=== PATIENT | female | born 1960 | race Caucasian/White ===

== ENCOUNTER 2017-10-21 22:29 | Emergency (ER) | payer OTHER, BC ==
[2017-10-21] MEDS: PERCOCET 5MG/325MG TAB PO (23:08)
== END 2017-10-21 23:57 | disposition home or self-care (01) ==
LOC: M ED 22:29
DX: S82.64XA Nondisplaced fracture of lateral malleolus of right fibula, initial encounter for closed fracture (principal); X50.0XXA Overexertion from strenuous movement or load, initial encounter; Y92.59 Other trade areas as the place of occurrence of the external cause; Y99.0 Civilian activity done for income or pay; G43.909 Migraine, unspecified, not intractable, without status migrainosus; R00.2 Palpitations; K21.9 Gastro-esophageal reflux disease without esophagitis; K44.9 Diaphragmatic hernia without obstruction or gangrene; F41.9 Anxiety disorder, unspecified; Z79.899 Other long term (current) drug therapy; Z87.891 Personal history of nicotine dependence
CPT/HCPCS: 73610

== ENCOUNTER → 2018-11-24 | Outpatient (REF) | payer OTHER ==
[~2018-11-24] MED LIST: ATOR1TAB21 PO; BUSP5TA PO; COUM1TAB18 PO; FISHOIL OR; MULTLIQ7 PO; NADO40TA PO; OMEPPOW18 OR; OXYC1TAB23 PO; SENN8.6T7 PO; TYLE325T5 PO; vitamin D OR
== END ==
LOC: M WUC 10:34
PROVIDERS: ATTEND Physician Assistant
DX: N39.0 Urinary tract infection, site not specified (principal)

== ENCOUNTER → 2019-03-12 | Outpatient (CLI) | payer BC ==
--- NOTE | 2019-03-12 12:29 | REP ---
Clinical: Nontraumatic right wrist pain Technique: AP, lateral, bilateral oblique views. Findings: The carpal bones, surrounding osseous structures, soft tissues, and joint spaces are normal. There is no evidence for acute fracture or dislocation. No subcutaneous emphysema or radiodense foreign body. Impression: Normal age-appropriate right wrist series. No acute fracture or dislocation Electronically Signed by Harvey Stephens MD 03/12/2019 12:20 P
== END ==
LOC: M WUC 12:09
PROVIDERS: ATTEND Nurse Practitioner Family
DX: M25.531 Pain in right wrist (principal)

== ENCOUNTER → 2019-08-01 | Outpatient (CLI) | payer BC ==
--- NOTE | 2019-08-01 13:07 | REP ---
Left lower extremity Duplex Doppler venous ultrasound: Real time compression and duplex Doppler interrogation of the left lower extremity deep venous system is performed. The left common femoral, superficial femoral and popliteal veins are fully compressible with transducer pressure and demonstrate normal spontaneous and phasic flow, without evidence of deep venous thrombosis. Impression: No evidence of deep venous thrombosis of the left lower extremity femoral popliteal venous system. Electronically Signed by Micah Fierro MD 08/01/2019 12:58 P
== END ==
LOC: M RAD 12:28
PROVIDERS: ATTEND Orthopaedic Surgery
DX: M79.662 Pain in left lower leg (principal)

== ENCOUNTER → 2019-10-06 | Outpatient (REF) | payer BC ==
[~2019-10-06] MED LIST changes: +VITA500079 PO
[2019-10-06 12:35] LABS: INR 1.08; PROTHROMBIN TIME 13.7 SECONDS (11.8-14.0)
== END ==
LOC: M LAB REF 12:21
PROVIDERS: ATTEND Internal Medicine
DX: Z01.818 Encounter for other preprocedural examination (principal)

== ENCOUNTER 2019-10-22 10:09 | Inpatient (IN) | payer BC ==
--- NOTE | 2019-10-18 08:48 | HPE ---
DATE OF ANTICIPATED ADMISSION: 10/22/2019 ATTENDING PHYSICIAN: Dr. Kevin Malagon CHIEF COMPLAINT: Left knee pain and stiffness. HISTORY: This is a pleasant 58-year-old female patient with progressively worsening left knee pain and stiffness who has failed to improve with conservative management. She has opted for surgical intervention for her continued symptoms. She has been consented for left total knee arthroplasty with Dr. Malagon. ALLERGIES: NO KNOWN DRUG ALLERGIES. CURRENT MEDICATIONS: - atorvastatin 20 mg - buspirone 5 mg - fexofenadine 180 mg - fluticasone - montelukast - nadolol 40 mg PAST MEDICAL HISTORY: 1. History of chronic microscopic hematuria. 2. Premature ventricular contractions (PVCs) and premature atrial contractions (PACs) with intermittent palpitations. 3. Generalized anxiety disorder 4. Allergic rhinitis. 5. Hepatitis A, resolved. 6. Hyperlipidemia. PAST SURGICAL HISTORY: 1. Right total knee arthroplasty. 2. Tonsillectomy and adenoidectomy. 3. BTO . FAMILY HISTORY: Mother hypertension, hyperlipidemia. Father lung cancer, at age 60. SOCIAL HISTORY: Denies smoking or alcohol use. REVIEW OF SYSTEMS: Denies fever, chills, chest pain, shortness of breath. Denies recent upper respiratory or urinary tract infection symptoms. Reports pain with weightbearing activities in the left lower extremity. PHYSICAL EXAMINATION: Height 65 inches, weight 190 pounds. Temperature 97, blood pressure 125/78, pulse 89, respirations 16. She is normocephalic, atraumatic, in no acute distress. Neck is supple and nontender with no lymphadenopathy or jugular venous distention (JVD). She has nonlabored breathing. Lungs are clear to auscultation bilaterally. S1, S2 auscultated with no murmurs, rubs or gallops. Abdomen is soft and nontender. Bilateral lower extremities are well-perfused. Left lower extremity shows intact overlying skin, discomfort with range of motion. She has intact neurovascular status in the left lower extremity. LABORATORY DATA: White count 5, red count 4.31, hemoglobin 13, hematocrit 38.7. PT 13.7, INR 1.08. BUN 18, creatinine 0.9. ESR 7. EKG sinus bradycardia with a low voltage. Chest x-ray with no acute cardiopulmonary processes. MEDICAL OPTIMIZATION: By Dr. Damon, reviewed today, on chart. IMPRESSION: Symptomatic left total knee arthroplasty. PLAN: Consented for left total knee arthroplasty with Dr. Malagon.
[~2019-10-22] VITALS: Ht 167.6 cm; Wt 88.0 kg
[~2019-10-22 10:09] MED LIST changes: +ACETAMINOPHEN 500 MG TAB PO ONE; +LR 1,000 ML IV ONE; +ceFAZolin SOD 2 GM in IV 1 EA IV ONE
[2019-10-22] MEDS ORDERED: propofoL 500 MG/50 ML VIAL As Ordered ONE (12:15)
[2019-10-22] MEDS ORDERED: LIDOCAINE 2% INJ 100 MG/5 ML SDV (FOR ANES.) As Ordered ONE (12:15)
[2019-10-22] MEDS ORDERED: fentaNYL 100 MCG/2 ML INJECTION (J3010) As Ordered ONE ×2 (12:15→12:36)
[2019-10-22] MEDS ORDERED: MIDAZOLAM INJ 2 MG/2 ML VIAL (J2250) As Ordered ONE ×2 (12:15→12:36)
[2019-10-22] MEDS ORDERED: ONDANSETRON 4MG/2ML VIAL (J2405) As Ordered ONE (12:15)
[2019-10-22] MEDS: fentaNYL 100 MCG/2 ML INJECTION (J3010) IV SCH ×2 (13:14→13:16)
[2019-10-22] MEDS ORDERED: TRANEXAMIC ACID 100 MG/ML 10ML VIAL As Ordered ONE (13:19)
[2019-10-22] MEDS ORDERED: EPINEPHrine INJ 1 MG/ML 1ML VIAL As Ordered ONE (13:19)
[2019-10-22] MEDS ORDERED: ceFAZolin 1GM INJ (J0690 PER 500MG) As Ordered ONE (13:19)
[2019-10-22] MEDS ORDERED: BUPIVACAINE LIPOSOME/PF 1.3% 20ML VIAL (13.3MG/ML)(EXPAREL)(C9290 PER1MG) As Ordered ONE (13:19)
[2019-10-22] MEDS ORDERED: BUPIVACAINE HCL 0.25% 10 ML VIAL As Ordered ONE (13:20)
[2019-10-22] MEDS ORDERED: MIDAZOLAM INJ 2 MG/2 ML VIAL (J2250) IV ONE (13:45)
[2019-10-22] MEDS ORDERED: ePHEDrine SULFATE 25 MG/5 ML(5MG/ML) SYRINGE As Ordered ONE (14:28)
[2019-10-22] MEDS ORDERED: ROPIvacaine 0.5% 30 ML INJECTION (J2795 PER 1MG) ONE (14:43)
[2019-10-22] MEDS ORDERED: EPINEPHrine INJ 1 MG/ML 1ML VIAL ONE (14:43)
[2019-10-22] MEDS ORDERED: dexameTHASONE 10 MG/1 ML VIAL PRES.FREE (J1100) ONE (14:43)
[2019-10-22] MEDS ORDERED: propofoL 200 MG/20 ML VIAL As Ordered ONE (15:27)
[2019-10-22] MEDS: fentaNYL 100 MCG/2 ML INJECTION (J3010) IV PRN ×3 (16:11→16:29)
[2019-10-22] MEDS ORDERED: ACETAMINOPHEN TAB 650MG DOSE (2X325MG) PO PRN (16:30)
[2019-10-22] MEDS ORDERED: LR 1,000 ML IV SCH ×2 (16:30)
[2019-10-22] MEDS ORDERED: MORPHINE 4 MG/ML 1ML VIAL/SYRINGE (J2270) IV PRN (16:30)
[2019-10-22] MEDS ORDERED: PERCOCET 5MG/325MG TAB PO PRN ×2 (16:30)
[2019-10-22] MEDS ORDERED: METOCLOPRAMIDE INJ 10MG/2ML VIAL (J2765) IV PRN (16:30)
[2019-10-22] MEDS ORDERED: ONDANSETRON 4MG/2ML VIAL (J2405) IV PRN ×2 (16:30)
[2019-10-22] MEDS ORDERED: MORPHINE 2 MG/ML 1ML VIAL (J2270) IV PRN ×2 (16:30)
--- NOTE | 2019-10-22 16:37 | CR.PDOC ---
General Date of Consultation: Oct 22, 2019 Consultation REASON FOR CONSULTATION/CHIEF COMPLAINT: Management of medical comorbidities following left knee arthroplasty. HISTORY OF PRESENT ILLNESS: Patient reported that she has had worsening pain in the left knee for some time now. The pain has acutely worsened over the past few months, her pain was on average 10 out of 10. Patient failed to improve with outpatient therapies. She has given consent for a total left knee replacement per Dr Malagon. ALLERGIES: Please see below. HOME MEDICATIONS: Please see below. PAST MEDICAL HISTORY: 1. Hyperlipidemia. 2. Generalized anxiety disorder. 3. Seasonal allergies. 4. History of hepatitis A 5. History of chronic microscopic hematuria. 6. PVCs and PACs with palpitations PAST SURGICAL HISTORY: 1. Right total knee arthroplasty 2. Remote history of tonsillectomy and adenoidectomy FAMILY HISTORY: Father: , Lung cancer Mother: Hypertension, hyperlipidemia SOCIAL HISTORY: Tobacco use: Denied ETOH: Denied Illicit drug use: Denied REVIEW OF SYSTEMS: Constitutional: Denies: Chills, Fever, Night Sweats Eyes: Denies: Pain ENT: Denies: Head Aches Skin: Denies: Rash Pulmonary: Denies: Dyspnea, Cough Cardiovascular: Denies: Chest Pain, Palpitations, Orthopnea, Paroxysmal Noc. Dyspnea, Lt Headedness Gastrointestinal: Denies: Nausea, Vomiting, Abdominal Pain, Diarrhea Genitourinary: Denies: Dysuria Musculoskeletal: Denies: Neck Pain, Back Pain, Joint Pain, Muscle Pain, Spasms Neurological: Denies: Weakness, Numbness Psych: Reports: Mood Normal; PHYSICAL EXAMINATION: VITAL SIGNS: Please see below. General: No acute distress, lethargic following surgery Eyes: Normal sclera, PERLLA HENT: Atraumatic, neck supple, moist mucous membranes Cardiovascular: Normal rate, normal rhythm. No murmurs appreciated. Pulmonary: Clear to auscultation b/l, no wheezing GI: Soft, nontender, nondistended Skin: Warm and dry Neuro: CN grossly intact. No focal deficits. Strengths equal b/l. Psych: oriented x 3. LABORATORY DATA: Please see below. ASSESSMENT/PLAN: 1. Left total arthroplasty Management per orthopedics. Pain management per orthopedics 2. Hyperlipidemia. Resume statin 3. CARI Resume BuSpar tomorrow. 4. Hypertension. Resume beta mary tonight 5. Allergic rhinitis May resume home meds tomorrow DVT prophylaxis: Xarelto Vital Signs/I&O Vital Signs Date Time Temp Pulse Resp B/P (MAP) Pulse Ox O2 Delivery O2 Flow Rate FiO2 10/22/19 16:10 56 16 130/78 (95) 95 Room Air 10/22/19 16:04 96.3 10/22/19 13:40 3 Allergies Coded Allergies: No Known Allergies (Unverified , 10/22/19) Home Medications Scheduled Atorvastatin Calcium (Atorvastatin Calcium) 20 Mg Tab, 1 TAB PO DAILY, (Reported) Buspirone HCl (Buspirone HCl) 5 Mg Tab, 1 TAB PO BID, (Reported) Cholecalciferol (Vitamin D3) (Vitamin D3) 5,000 Unit Tab.rapdis, 5,000 UNIT PO DAILY, (Reported) Nadolol (Nadolol) 40 Mg Tab, 1.5 TAB PO DAILY, (Reported) REYES TUCKER PA-C Oct 22, 2019 16:37
--- NOTE | 2019-10-22 17:00 | REP ---
Left knee: Two views. History: Postop. Findings: AP and lateral views of the left knee obtained portably document left knee arthroplasty components installed in good position. Anterior skin stephanie are seen. Periarticular an intra-articular soft tissue gas noted. Impression: Status post left knee arthroplasty. Electronically Signed by Javon West MD 10/22/2019 05:03 P
[2019-10-22 17:10] VITALS: BP 145/78
[2019-10-22 17:40] VITALS: BP 143/77
[2019-10-22 18:10] VITALS: BP 145/79
[2019-10-22] MEDS: PERCOCET 5MG/325MG TAB PO PRN (18:16)
[2019-10-22 19:10] VITALS: BP 133/73
[2019-10-22 20:35] VITALS: BP 120/75
[2019-10-22] MEDS: NADOLOL 20MG TABLET PO SCH (21:16)
[2019-10-22] MEDS: ceFAZolin SOD 2 GM in IV 1 EA IV SCH (21:50)
[2019-10-23] MEDS: PERCOCET 5MG/325MG TAB PO PRN ×5 (00:47→20:38)
[2019-10-23 02:15] VITALS: BP 125/76
[2019-10-23] MEDS: ceFAZolin SOD 2 GM in IV 1 EA IV SCH ×2 (05:08→14:52)
[2019-10-23] MEDS ORDERED: PERCOCET 5MG/325MG TAB PO PRN (05:45)
[2019-10-23 06:18] VITALS: BP 117/70
[2019-10-23] MEDS ORDERED: PERC5TAB12 PO (07:03)
[2019-10-23] MEDS ORDERED: XARE10TA PO (07:03)
[2019-10-23 07:45] LABS: HEMATOCRIT 31.8 % (36.0-47.0); HEMOGLOBIN 10.3 g/dl (12.0-15.5); MEAN CORPUSCULAR HEMOGLOBIN 30.6 pg (27.0-33.0); MEAN CORPUSCULAR HGB CONC 32.4 g/dl (32.0-36.5); MEAN CORPUSCULAR VOLUME 94.4 fl (80.0-96.0); PLATELET COUNT, AUTOMATED 156 10^3/uL (150-450); RED BLOOD COUNT 3.37 10^6/uL (4.00-5.40)
[2019-10-23 08:22] LABS: ALBUMIN 2.9 GM/DL (3.2-5.2); ALT/SGPT 23 U/L (12-78); BILIRUBIN,TOTAL 0.2 MG/DL (0.2-1.0); BLOOD UREA NITROGEN 13 MG/DL (7-18); CALCIUM LEVEL 8.4 MG/DL (8.8-10.2); CARBON DIOXIDE LEVEL 29 MEQ/L (21-32); CHLORIDE LEVEL 108 MEQ/L (98-107); CREATININE FOR GFR 0.87 MG/DL (0.55-1.30); GLOMERULAR FILTRATION RATE > 60.0 (>45); GLUCOSE, FASTING 123 MG/DL (70-100); SODIUM LEVEL 141 MEQ/L (136-145); TOTAL PROTEIN 5.8 GM/DL (6.4-8.2)
[2019-10-23] MEDS: busPIRone 5 MG TAB PO SCH ×2 (08:45→20:34)
[2019-10-23] MEDS: MIRALAX *UNIT DOSE* 17GM PACKET PO SCH (08:45)
[2019-10-23] MEDS: MOM 30ML SUSPENSION UDC PO SCH (08:45)
[2019-10-23] MEDS: ATORVASTATIN 20 MG TAB PO SCH (08:45)
--- NOTE | 2019-10-23 08:46 | RO ---
DATE OF PROCEDURE: 10/22/2019 PREPROCEDURE DIAGNOSIS: Left knee degenerative arthritis. POSTPROCEDURE DIAGNOSIS: Left knee degenerative arthritis. PROCEDURE: Left total knee arthroplasty using a Size 5 Attune cruciate retaining femoral component with a size 5 tibial tray and a 6 mm rotating platform polyethylene insert and a 35 mm polyethylene button. The prosthesis made by [employer]. SURGEON: Dr. Ericka Malagon BILL PEDDLER: Ms. Thu Anne ANESTHESIA: Left femoral nerve block and a spinal anesthetic. ESTIMATED BLOOD LOSS: 20 mL. COMPLICATIONS: None. SPECIMEN: Joint surface. DESCRIPTION OF PROCEDURE: Antibiotics were given intravenously preoperatively and a successful left femoral nerve block and then a spinal anesthetic was performed. Then, a tourniquet was placed on the left upper thigh and not inflated. The left lower extremity was carefully prepped and draped in the usual sterile fashion and then elevated. Then, after appropriate time out, the tourniquet was inflated. A longitudinal incision was made for a medial parapatellar approach to the knee. Bovie cautery was used to coagulate crossing vessels. Subperiosteal dissection around the proximal medial and lateral tibial plateau was then performed and then the patella was everted, the knee was flexed and the anterior cruciate ligament (ACL) debrided. A drill placed down the center of the femoral canal, followed by the intramedullary marcell and the distal femoral cutting jig set at 5 degrees valgus cut for a left knee at 9 mm resection level. The block was pinned into position. Distal femoral cut performed. AP sizing jig measured for a size 6 initially. 3 degrees of external rotation were dialed in and the pins were placed and the 4-in-1 block applied and the anterior, posterior, and chamfer cuts performed. Sulcus cut osteotomy was then performed by placing the jig, pinning it into position and then the sulcus osteotomy performed. We then exposed the proximal tibia and used the extramedullary alignment jig for the tibia and we referenced off the medial tibial condyle at 4 mm resection level. The block was pinned into position. Then the secondary check with the extramedullary marcell confirmed we appeared to be parallel to the mechanical axis. Thus, a proximal tibial osteotomy was performed. We then placed the lamina multicultural internship laterally and performed a completion medial meniscectomy with debridement of posterior medial osteophytes. Then, placed the lamina multicultural internship medially and performed a completion lateral meniscectomy with debridement of posterior lateral osteophytes. Spacer block testing showed that she had actually good symmetry with varus and valgus stress testing, but was excessively tight in flexion, but was just about right in extension. Thus, I though the femur could be down sized. It did look relatively large when we applied the 4-in-1 block. Thus, I elected to down size to a size 5. The 5, 4-in-1 block was then applied to the distal femur using the bat wing to set our rotation and anterior and posterior alignment and it was pinned into position and the posterior chamfer cuts were performed. There was no additional bone cut for the anterior chamfers. We then placed the spacer blocks again and the 6 spacer block fit nicely with good symmetry now in both flexion and in extension. Thus, I felt this was the appropriate size. We then exposed the proximal tibia and sized for a 5 tibial tray, which was pinned into position, followed by the reamer and broach. Then, the trial 6 mm polyethylene was applied and then the trial femoral component was applied. We brought the knee into extension, everted the patella, performed a patellar osteotomy and sized for a 35 button. The lug holes were drilled, trial placed and the patellofemoral tracking was anatomic. We then drilled the lug holes for the femur and then removed all the trial components. Then placed Exparel in the subperiosteal tissues around the distal femur and the proximal tibia. Then Ms. Thu Anne started mixing the cement on the back table as I prepared the bony surfaces for cementing with a copious amount of pulsatile lavage irrigant solution. She was also critical to the success of this difficult procedure by helping with appropriate soft tissue manipulation, to help manipulate the leg as needed, help to close the wound, helped to mix the cement, helped to prepare the patient, amongst many other tasks to allow me to perform the operation smoothly, efficiently and safely. After all the bony surfaces were thoroughly dried, we cemented the tibial tray, removed excess cement, placed the polyethylene, cemented the femoral component, removed excess cement, brought the knee into extension, everted the patella, cemented the patellar button, removed excess cement, and held it with a clamp with the knee in extension until the cement hardened. As we were awaiting this, we continued to irrigate out the knee joint and then placed tranexamic acid into the knee joint. Then closed the apex of the arthrotomy with two #1 PDS sutures and then one in the medial parapatellar area and then we closed the capsule with a running double armed #1 Stratafix. We then released the tourniquet and then irrigated the subdermal tissues and closed them with interrupted #2-0 PDS sutures, the skin was closed with stephanie and covered by an Optifoam and dry sterile bulky dressing. She was then transferred to the recovery room in stable condition. There were no intraoperative complications.
[2019-10-23 14:00] VITALS: BP 117/67
--- NOTE | 2019-10-23 16:27 | IPNPDOC ---
Text Note Date of Service The patient was seen on 10/23/19. NOTE HPI: Patient reported that she has had worsening pain in the left knee for some time now. The pain has acutely worsened over the past few months, her pain was on average 10 out of 10. Patient failed to improve with outpatient therapies. She has given consent for a total left knee replacement per Dr Malagon. Patient seen sitting up in bed this morning. She reportedly went to walk with physical therapy, however, she became nauseous and vomited. She believes that some of this is due to her having to exert so much pressure to use the walker. When seen in much of the nausea is already subsided and she has not vomited since this morning. Patient is likely to be discharged today, she will be reassessed by physical therapy this afternoon. She says that she is already feeling better at this time. REVIEW OF SYSTEMS: Constitutional: Denies: Chills, Fever, Night Sweats Eyes: Denies: Pain ENT: Denies: Head Aches Skin: Denies: Rash Pulmonary: Denies: Dyspnea, Cough Cardiovascular: Denies: Chest Pain, Palpitations, Orthopnea, Paroxysmal Noc. Dyspnea, Lt Headedness Gastrointestinal: Reports: Nausea, vomiting Denies: Abdominal Pain, Diarrhea Genitourinary: Denies: Dysuria Musculoskeletal: Denies: Neck Pain, Back Pain, Joint Pain, Muscle Pain, Spasms Neurological: Denies: Weakness, Numbness Psych: Reports: Mood Normal; PHYSICAL EXAMINATION: VITAL SIGNS: Please see below. General: Alert, No acute distress Eyes: Normal sclera, PERLLA HENT: Atraumatic, neck supple, moist mucous membranes Cardiovascular: Normal rate, normal rhythm. No murmurs appreciated. Pulmonary: Clear to auscultation b/l, no wheezing GI: Soft, nontender, nondistended Skin: Warm and dry Neuro: CN grossly intact. No focal deficits. Strengths equal b/l. Psych: oriented x 3. LABORATORY DATA: Please see below. ASSESSMENT/PLAN: 1. Left total arthroplasty Management per orthopedics. Pain management per orthopedics 2. Hyperlipidemia. Continue statin 3. CARI Resume BuSpar today. 4. Hypertension. Continue beta mary 5. Allergic rhinitis Resume home meds today DVT prophylaxis: Xarelto VS,Fishbone, I+O VS, Fishbone, I+O Laboratory Tests 10/23/19 07:18 Vital Signs Date Time Temp Pulse Resp B/P (MAP) Pulse Ox O2 Delivery O2 Flow Rate FiO2 10/23/19 16:10 18 Room Air 10/23/19 06:37 97 10/23/19 06:18 97.8 57 117/70 (86) 10/22/19 13:40 3 I&O- Last 24 Hours up to 6 AM 10/23/19 06:00 Intake Total 2175 ml Output Total 1120 ml Balance 1055 ml REYES TUCKER PA-C Oct 23, 2019 16:27
[2019-10-23] MEDS ORDERED: RIVAROXABAN 10 MG TAB (XARELTO) PO SCH (18:00)
[2019-10-23] MEDS: NADOLOL 20MG TABLET PO SCH (20:35)
[2019-10-23 22:00] VITALS: BP 115/62
[2019-10-24] MEDS: PERCOCET 5MG/325MG TAB PO PRN ×3 (01:40→10:31)
[2019-10-24 06:00] VITALS: BP 119/61
[2019-10-24 06:53] LABS: HEMOGLOBIN 10.1 g/dl (12.0-15.5); MEAN CORPUSCULAR HEMOGLOBIN 31.1 pg (27.0-33.0); MEAN CORPUSCULAR HGB CONC 32.6 g/dl (32.0-36.5); MEAN CORPUSCULAR VOLUME 95.4 fl (80.0-96.0); PLATELET COUNT, AUTOMATED 146 10^3/uL (150-450); RED BLOOD COUNT 3.25 10^6/uL (4.00-5.40); WHITE BLOOD COUNT 8.5 10^3/uL (4.0-10.0)
[2019-10-24 07:24] LABS: ALBUMIN 2.9 GM/DL (3.2-5.2); ALT/SGPT 20 U/L (12-78); BILIRUBIN,TOTAL 0.4 MG/DL (0.2-1.0); BLOOD UREA NITROGEN 10 MG/DL (7-18); CALCIUM LEVEL 8.4 MG/DL (8.8-10.2); CARBON DIOXIDE LEVEL 33 MEQ/L (21-32); CHLORIDE LEVEL 105 MEQ/L (98-107); CREATININE FOR GFR 0.93 MG/DL (0.55-1.30); GLOMERULAR FILTRATION RATE > 60.0 (>45); GLUCOSE, FASTING 120 MG/DL (70-100); POTASSIUM SERUM 4.3 MEQ/L (3.5-5.1); SODIUM LEVEL 139 MEQ/L (136-145); TOTAL PROTEIN 6.1 GM/DL (6.4-8.2)
[2019-10-24] MEDS: MOM 30ML SUSPENSION UDC PO SCH (08:48)
[2019-10-24] MEDS: ATORVASTATIN 20 MG TAB PO SCH (08:48)
[2019-10-24] MEDS: MIRALAX *UNIT DOSE* 17GM PACKET PO SCH (08:48)
[2019-10-24] MEDS: busPIRone 5 MG TAB PO SCH (08:49)
--- NOTE | 2019-10-24 17:36 | IPNPDOC ---
Text Note Date of Service The patient was seen on 10/24/19. NOTE HPI: Patient reported that she has had worsening pain in the left knee for some time now. The pain has acutely worsened over the past few months, her pain was on average 10 out of 10. Patient failed to improve with outpatient therapies. She has given consent for a total left knee replacement per Dr Malagon. Patient seen sitting up in bed. She reported that she is doing ok, had a little bit of nausea this morning, but is now fine. REVIEW OF SYSTEMS: Constitutional: Denies: Chills, Fever, Night Sweats Eyes: Denies: Pain ENT: Denies: Head Aches Skin: Denies: Rash Pulmonary: Denies: Dyspnea, Cough Cardiovascular: Denies: Chest Pain, Palpitations, Orthopnea, Paroxysmal Noc. Dyspnea, Lt Headedness Gastrointestinal: Reports: Nausea Denies: Vomiting, Abdominal Pain, Diarrhea Genitourinary: Denies: Dysuria Musculoskeletal: Denies: Neck Pain, Back Pain, Joint Pain, Muscle Pain, Spasms Neurological: Denies: Weakness, Numbness Psych: Reports: Mood Normal; PHYSICAL EXAMINATION: VITAL SIGNS: Please see below. General: Alert, No acute distress Eyes: Normal sclera, PERLLA HENT: Atraumatic, neck supple, moist mucous membranes Cardiovascular: Normal rate, normal rhythm. No murmurs appreciated. Pulmonary: Clear to auscultation b/l, no wheezing GI: Soft, nontender, nondistended Skin: Warm and dry Neuro: CN grossly intact. No focal deficits. Strengths equal b/l. Psych: oriented x 3. LABORATORY DATA: Please see below. ASSESSMENT/PLAN: 1. Left total arthroplasty Management per orthopedics. Pain management per orthopedics 2. Hyperlipidemia. Continue statin 3. CARI Contineu BuSpar 4. Hypertension. Continue beta mary 5. Allergic rhinitis Continue home antihistamines DVT prophylaxis: Xarelto VS,Fishbone, I+O VS, Fishbone, I+O Laboratory Tests 10/24/19 06:32 10/24/19 06:33 Vital Signs Date Time Temp Pulse Resp B/P (MAP) Pulse Ox O2 Delivery O2 Flow Rate FiO2 10/24/19 11:15 16 10/24/19 06:10 Room Air 10/24/19 06:00 99.7 70 119/61 (80) 95 10/22/19 13:40 3 I&O- Last 24 Hours up to 6 AM 10/24/19 06:00 Intake Total 2680 ml Output Total 1100 ml Balance 1580 ml REYES TUCKER PA-C Oct 24, 2019 17:36
== END 2019-10-24 13:40 | disposition home or self-care (01) | DRG 302 ==
LOC: M OR 10:09 → M MS5PR 17:10
PROVIDERS: ADMIT Orthopaedic Surgery; ATTEND Orthopaedic Surgery
PROC: 0SRD0JZ Replacement of Left Knee Joint with Synthetic Substitute, Open Approach (ICD-10-PCS; principal; 2019-10-22 13:05)
DX: M17.12 Unilateral primary osteoarthritis, left knee (principal); B15.0 Hepatitis A with hepatic coma; Z79.899 Other long term (current) drug therapy; F41.1 Generalized anxiety disorder; E78.5 Hyperlipidemia, unspecified; Z96.651 Presence of right artificial knee joint

== ENCOUNTER 2023-07-08 13:29 | Emergency (ER) | payer BC, OTHER ==
[~2023-07-08] VITALS: Ht 167.6 cm; Wt 96.7 kg
[~2023-07-08 13:29] MED LIST changes: -ACETAMINOPHEN 500 MG TAB PO ONE; -LR 1,000 ML IV ONE; -NADO40TA PO; +NADO40TA6 PO; +PERC5TAB12 PO; +XARE10TA PO; -ceFAZolin SOD 2 GM in IV 1 EA IV ONE
[2023-07-08 14:02] LABS: BASO % 0.4 % (0.0-1.0); EOS % 0.6 % (0.0-3.0); HEMATOCRIT 40.7 % (36.0-47.0); HEMOGLOBIN 13.4 g/dl (12.0-15.5); LYMPH # 2.3 10^3/uL (1.5-5.0); LYMPH % 45.8 % (24.0-44.0); MEAN CORPUSCULAR HEMOGLOBIN 30.3 pg (27.0-33.0); MEAN CORPUSCULAR HGB CONC 32.9 g/dl (32.0-36.5); MEAN CORPUSCULAR VOLUME 92.1 fl (80.0-96.0); MONO # 0.4 10^3/uL (0.0-0.8); MONO % 7.7 % (2.0-8.0); NEUTROPHILS # 2.2 10^3/uL (1.5-8.5); NEUTROPHILS % 45.3 % (36.0-66.0); PLATELET COUNT, AUTOMATED 221 10^3/uL (150-450); RED BLOOD COUNT 4.42 10^6/uL (4.00-5.40); WHITE BLOOD COUNT 4.9 10^3/uL (4.0-10.0)
[2023-07-08 14:25] LABS: BLOOD UREA NITROGEN 15 MG/DL (9-23); CALCIUM LEVEL 9.4 MG/DL (8.3-10.6); CARBON DIOXIDE LEVEL 29 MMOL/L (20-31); CHLORIDE LEVEL 102 MMOL/L (98-107); CK-MB VALUE MASS < 1.0 NG/ML (<3.6); CPK CREATINE PHOSPHOKINASE 63 U/L (34-145); CREATININE FOR GFR 0.93 MG/DL (0.55-1.30); GLOMERULAR FILTRATION RATE > 60.0 (>45); GLUCOSE, FASTING 160 MG/DL (74-106); MB/CK RELATIVE INDEX 1.58 (< OR =4); POTASSIUM SERUM 4.6 MMOL/L (3.5-5.1); SODIUM LEVEL 140 MMOL/L (136-145)
[2023-07-08 15:20] LABS: LIPASE 44 U/L (12-53)
[2023-07-08 15:22] LABS: ALBUMIN 3.9 G/DL (3.2-5.2); ALKALINE PHOSPHATASE 97 U/L (46-116); ALT/SGPT 24 U/L (7.0-40); AST/SGOT 15 U/L (<34); BILIRUBIN,DIRECT 0.2 MG/DL (<0.4); BILIRUBIN,TOTAL 0.5 MG/DL (0.3-1.2); TOTAL PROTEIN 6.9 G/DL (5.7-8.2)
[2023-07-08 15:23] LABS: CK-MB VALUE MASS < 1.0 NG/ML (<3.6)
[2023-07-08 15:27] LABS: CPK CREATINE PHOSPHOKINASE 63 U/L (34-145); MB/CK RELATIVE INDEX 1.58 (< OR =4)
[2023-07-08] MEDS ORDERED: ISOVUE-370 76% 100ML VIAL As Ordered ONE (17:02)
[2023-07-08 18:33] VITALS: BP 124/65; TEMP 98; O2SAT 100
== END 2023-07-08 18:34 | disposition home or self-care (01) ==
LOC: M ED 13:29
DX: R07.89 Other chest pain (principal); E78.5 Hyperlipidemia, unspecified; F41.9 Anxiety disorder, unspecified; Z11.52 Encounter for screening for COVID-19
CPT/HCPCS: 36415; 71045; 71275; 80048; 80076; 82550; 82553; 83690; 85025; 87486; 87581; 87633; 87798; 93005; 99284; Q9967

== ENCOUNTER → 2023-09-05 | Outpatient (CLI) | payer OTHER | LOC: M RAD 12:14 | PROVIDERS: ATTEND Internal Medicine | DX: R42 Dizziness and giddiness (principal) ==

== ENCOUNTER → 2023-09-06 | Outpatient (CLI) | payer OTHER | LOC: M WHC 09:01 | PROVIDERS: ATTEND Internal Medicine | DX: R14.2 Eructation (principal); K76.0 Fatty (change of) liver, not elsewhere classified ==

== ENCOUNTER → 2024-03-25 | Outpatient (CLI) | payer MEDICARE ==
[2024-03-25 09:31] LABS: HEMATOCRIT 40.2 % (36.0-47.0); HEMOGLOBIN 13.1 g/dl (12.0-15.5); MEAN CORPUSCULAR HEMOGLOBIN 30.3 pg (27.0-33.0); MEAN CORPUSCULAR HGB CONC 32.6 g/dl (32.0-36.5); MEAN CORPUSCULAR VOLUME 93.1 fl (80.0-96.0); PLATELET COUNT, AUTOMATED 212 10^3/uL (150-450); RED BLOOD COUNT 4.32 10^6/uL (4.00-5.40)
[2024-03-25 10:00] LABS: ALBUMIN 3.7 G/DL (3.2-5.2); ALKALINE PHOSPHATASE 102 U/L (46-116); ALT/SGPT 16 U/L (7.0-40); AST/SGOT < 8 U/L (<34); BILIRUBIN,TOTAL 0.5 MG/DL (0.3-1.2); BLOOD UREA NITROGEN 14 MG/DL (9-23); CALCIUM LEVEL 9.5 MG/DL (8.3-10.6); CARBON DIOXIDE LEVEL 30 MMOL/L (20-31); CHLORIDE LEVEL 107 MMOL/L (98-107); CHOLESTEROL LEVEL 186 MG/DL (<200); CHOLESTEROL RISK RATIO 3.17 (<5); CREATININE FOR GFR 0.87 MG/DL (0.55-1.30); FOLLICLE STIMULATING HORMONE 105.9 mIU/ML; GLOMERULAR FILTRATION RATE > 60.0 (>45); GLUCOSE, FASTING 107 MG/DL (74-106); HDL CHOLESTEROL 58.6 MG/DL (>40); LDL CHOLESTEROL 105.2 MG/DL (<100); NON-HDL-C 127.4 MG/DL; POTASSIUM SERUM 4.5 MMOL/L (3.5-5.1); SODIUM LEVEL 142 MMOL/L (136-145); THYROID STIMULATING HORMONE 4.364 uIU/ML (0.55-4.78); TOTAL PROTEIN 6.7 G/DL (5.7-8.2); TRIGLYCERIDES LEVEL 111 MG/DL (<150)
[2024-03-25 10:02] LABS: LUTEINIZING HORMONE 37.7 mIU/ML
[2024-03-25 10:11] LABS: HEMOGLOBIN A1c 5.7 % (4.0-6.0)
== END ==
LOC: M LAB 08:16
PROVIDERS: ATTEND Physician Assistant
DX: E78.5 Hyperlipidemia, unspecified (principal); F41.1 Generalized anxiety disorder; E55.9 Vitamin D deficiency, unspecified

== ENCOUNTER → 2024-03-26 | Outpatient (CLI) | payer MEDICARE | LOC: M WHC 12:35 | PROVIDERS: ATTEND Physician Assistant | DX: Z13.820 Encounter for screening for osteoporosis (principal); M85.89 Other specified disorders of bone density and structure, multiple sites ==

== ENCOUNTER 2024-08-20 06:39 | Day surgery (SDC) | payer MEDICARE ==
[~2024-08-20] VITALS: Ht 167.6 cm; Wt 95.5 kg
[~2024-08-20 06:39] MED LIST changes: +CALTTAB6 PO; +CLON0.5T2 PO; +FAMO1TAB11 PO; +NADO40TA40 PO; -NADO40TA6 PO; +VITA100093 PO
[2024-08-20] MEDS ORDERED: dexmedeTOMIDine (4MCG/ML)200MCG/50ML BTL (PRECEDEX) As Ordered ONE (07:01)
[2024-08-20] MEDS ORDERED: LIDOCAINE 2% 100MG/5ML SDV (FOR ANES.) As Ordered ONE (07:01)
[2024-08-20] MEDS ORDERED: propofoL 500 MG/50 ML VIAL As Ordered ONE (07:02)
[2024-08-20 08:08] VITALS: TEMP 97.8
[2024-08-20 08:32] VITALS: BP 131/75; O2SAT 96
== END 2024-08-20 08:38 | disposition home or self-care (01) ==
LOC: M OPP 06:39
PROVIDERS: ATTEND Surgery
DX: Z12.11 Encounter for screening for malignant neoplasm of colon (principal); K57.30 Diverticulosis of large intestine without perforation or abscess without bleeding; K44.9 Diaphragmatic hernia without obstruction or gangrene; K30 Functional dyspepsia; Z79.899 Other long term (current) drug therapy
CPT/HCPCS: 43235; G0121

== ENCOUNTER → 2024-12-22 | Outpatient (REF) | payer MEDICARE | LOC: M LAB REF 11:51 | PROVIDERS: ATTEND Internal Medicine | DX: R30.0 Dysuria (principal) ==